=== PATIENT | male | born 1950 ===

== ENCOUNTER 2024-01-18 13:41 | Outpatient (CLI) | payer MEDICARE, OTHER, SELFPAY ==
--- NOTE | ~2024-01-18 | MR_ITS ---
EXAMINATION: MR cervical spine wo con DATE: 01/18/2024 14:31 INDICATION: Neck pain. Right hand numbness. TECHNIQUE: Magnetic resonance imaging (MRI) of the cervical spine was performed without intravenous c ontrast. COMPARISON: None FINDINGS: There is 4 degrees levocurvature of the cervicothoracic spine. There is mild kyphosis of ce rvical spine. Vertebral body heights are normal. There is severely decreased disc height at C4-C5, C5 -C6, and C6-C7. The spinal cord signal intensity is normal. The following disc levels are specificall y discussed: C2-C3: The disc does not extend beyond the endplate margin. There is no uncovertebral joint osteoarth ritis. There is mild bilateral facet joint osteoarthritis. There is no neural foraminal stenosis. The re is no central canal stenosis. C3-C4: The disc does not extend beyond the endplate margin. There is mild bilateral uncovertebral nicol nt osteoarthritis. There is mild bilateral facet joint osteoarthritis. There is mild bilateral neural foraminal stenosis. There is no central canal stenosis. C4-C5: There is a central extrusion. There is severe bilateral uncovertebral joint osteoarthritis. Th ere is severe right and lateral left facet joint osteoarthritis. There is moderate right and mild lef t neural foraminal stenosis. There is mild central canal stenosis with ventral indentation of the spi nal cord. C5-C6: The disc is bulging. There is severe bilateral uncovertebral joint osteoarthritis. There is mo derate bilateral facet joint osteoarthritis. There is mild bilateral neural foraminal stenosis. There is mild central canal stenosis with ventral indentation of the spinal cord. C6-C7: There is a central protrusion. There is severe right and moderate left uncovertebral joint ost eoarthritis. There is mild bilateral facet joint osteoarthritis. There is mild bilateral neural julius inal stenosis. There is mild central canal stenosis. C7-T1: The disc does not extend beyond the endplate margin. There is no uncovertebral joint osteoarth ritis. There is moderate bilateral facet joint osteoarthritis. There is mild bilateral neural foramin al stenosis. There is no central canal stenosis. IMPRESSION: 1. Severe cervical spondylosis. Reviewed, dictated and finalized at location A.
== END 2024-01-18 13:42 ==
LOC: GOSHIMG 13:45
PROVIDERS: PCP Orthopaedic Surgery; Visit Provider Orthopaedic Surgery
DX: M43.02 Spondylolysis, cervical region (principal)
CPT/HCPCS: 72141